=== PATIENT | female | born 1965 | race Caucasian/White ===

== ENCOUNTER → 2018-06-25 | Outpatient (CLI) | payer MEDICAID | LOC: CIMAGING 07:35 | PROVIDERS: ATTEND Physician Assistant | DX: N13.2 Hydronephrosis with renal and ureteral calculous obstruction (principal); K83.8 Other specified diseases of biliary tract; Q63.2 Ectopic kidney; I70.0 Atherosclerosis of aorta | CPT/HCPCS: 76705-PO ==

== ENCOUNTER → 2018-09-23 | Outpatient (CLI) | payer MEDICAID | LOC: FIMAGING 10:33 | PROVIDERS: ATTEND Family Medicine | DX: Z13.820 Encounter for screening for osteoporosis (principal); M80.00XA Age-related osteoporosis with current pathological fracture, unspecified site, initial encounter for fracture; N95.1 Menopausal and female climacteric states ==

== ENCOUNTER → 2018-11-04 | Outpatient (CLI) | payer MEDICAID | LOC: CIMAGING 15:59 ==